=== PATIENT | female | born 1990 | race Caucasian/White ===

== ENCOUNTER 2017-10-16 22:17 | Emergency (ER) | payer OTHER ==
[2017-10-17] MEDS: ONDANSETRON (ODT) 4 MG TAB ODT (01:38)
== END 2017-10-17 02:15 | disposition home or self-care (01) ==
LOC: FTE 22:17
DX: F12.90 Cannabis use, unspecified, uncomplicated (principal); R42 Dizziness and giddiness
CPT/HCPCS: 93005; 99283-25